=== PATIENT | male | born 1990 | race Caucasian/White ===

== ENCOUNTER 2019-03-07 20:13 | Emergency (ER) | payer OTHER ==
[~2019-03-07] VITALS: Ht 177.8 cm; Wt 156.5 kg
[2019-03-07 20:27] VITALS: BP 166/81
--- NOTE | 2019-03-07 22:08 | NUR ---
PT AMBULATED TO BED 10.
--- NOTE | 2019-03-07 22:48 | NUR ---
28 Y/O MALE C/O CP RADIATING TO THE LEFT ARM AND LEFT SHOULDER. , DIZZINESS, AND NAUSEA WITHOUT VOMITING X1 DAY. NO SOB/DYSPNEA. [address],ACUTE PAIN. SUDDEN ONSET. PATIENT STATED THAT HE HAD N/V/D YESTERDAY BUT NO COMPLAINTS FOR TODAY. SPO2 IS 95% ON ROOM AIR. HR IS 76BPM. ERMD MADE AWARE OF STATUS. SIDERAILSX1 AND PLACED ON MONITOR. HX: DENIES RX:NONE NKDA
--- NOTE | 2019-03-07 23:55 | NUR ---
ERMD EVALUATING PATIENT.
[2019-03-08] MEDS ORDERED: KETOROLAC 60 MG/2 ML VIAL IM ONE (00:15)
[2019-03-08 04:26] VITALS: BP 122/62
== END 2019-03-08 01:30 | disposition home or self-care (01) ==
LOC: MED 20:13
DX: R07.9 Chest pain, unspecified (principal); E66.01 Morbid (severe) obesity due to excess calories; Z68.42 Body mass index [BMI] 45.0-49.9, adult
CPT/HCPCS: 71045; 93005; 96372; 99283; J1885; Q0092

== ENCOUNTER 2023-09-23 04:57 | Observation (INO) | payer MEDICAID, OTHER ==
[~2023-09-23] VITALS: Ht 177.8 cm; Wt 158.8 kg
[2023-09-23 05:00] VITALS: BP 148/90; PULSE 94; RESP 18; TEMP 98; O2SAT 96
[2023-09-23] MEDS: MORPHINE SULFATE 4 MG/ML SYR IVP ONE ×2 (05:54→08:23)
[2023-09-23] MEDS: ONDANSETRON 4 MG/2 ML VIAL IVP ONE (05:55)
[2023-09-23 06:31] LABS: BASOPHILS % (AUTO) 0.3 % (0.0-2.0); EOSINOPHILS # (AUTO) 0.5 K/uL (0-0.4); LYMPHOCYTES % (AUTO) 25.7 % (20.5-51.1); MEAN CORPUSCULAR HEMOGLOBIN 29 pg (27-31); MEAN CORPUSCULAR HGB CONC 35 g/dL (33-37); MEAN CORPUSCULAR VOLUME 84.4 fL (80-94); MONOCYTES # (AUTO) 0.6 K/uL (0.8-1.0); MONOCYTES % (AUTO) 5.5 % (1.7-9.3); NEUTROPHILS # (AUTO) 7.4 K/uL (1.8-7.7); NEUTROPHILS % (AUTO) 64.5 % (42.2-75.2); PLATELET COUNT (AUTO) 249 K/uL (140-450); RED CELL DISTRIBUTION WIDTH 14.3 % (11.6-13.7); WHITE BLOOD COUNT (AUTO) 11.5 K/uL (4.8-10.8)
[2023-09-23 06:43] LABS: ANION GAP 13.6 (8-16); CARBON DIOXIDE 27.2 mmol/L (21-32); POTASSIUM 3.8 mmol/L (3.5-5.1)
[2023-09-23 06:50] LABS: ALBUMIN 3.7 g/dL (3.4-5.0); BILIRUBIN,DIRECT 0.1 mg/dL (0.0-0.3); TOTAL BILIRUBIN 0.4 mg/dL (0.0-1.0)
[2023-09-23 07:19] LABS: APPEARANCE,URINE CLEAR (CLEAR); BILIRUBIN,URINE NEGATIVE (NEGATIVE); BLOOD, URINE NEGATIVE (NEGATIVE); COLOR,URINE YELLOW (YELLOW); LEUKOCYTE ESTERASE ,URINE NEGATIVE (NEGATIVE); NITRITE, URINE NEGATIVE (NEGATIVE); PROTEIN,URINE NEGATIVE (NEGATIVE); UGLUCOSE NEGATIVE (NEGATIVE); UROBILINOGEN,URINE 0.2 EU/dL (0.2 - 1)
[2023-09-23] MEDS ORDERED: FAMO-92 PO (07:50)
[2023-09-23] MEDS: ASPIRIN 81 MG TAB.CHEW PO ONE (08:29)
[2023-09-23] MEDS: NITROGLYCERIN 2% 1 GM PKT TP ONE (08:31)
[2023-09-23] MEDS ORDERED: HYDROcodone/APAP 5/325 MG 1 TAB TAB PO PRN (09:40)
[2023-09-23] MEDS ORDERED: ONDANSETRON 4 MG/2 ML VIAL IVP PRN (09:40)
[2023-09-23] MEDS ORDERED: KCL 20 MEQ IN 100 mL PREMIX 200 ML IV PRN (09:40)
[2023-09-23] MEDS ORDERED: MAG SULF 2000 MG/WATER PREMIX 50 ML IV PRN (09:40)
[2023-09-23] MEDS ORDERED: ACETAMINOPHEN 325 MG TAB PO PRN (09:40)
[2023-09-23] MEDS ORDERED: POTASSIUM CHLORIDE 10 MEQ TABER PO PRN (09:40)
[2023-09-23] MEDS ORDERED: MAGNESIUM OXIDE 400 MG TAB PO PRN (09:40)
[2023-09-23 11:00] VITALS: PULSE 87; RESP 18; O2SAT 93
[2023-09-23] MEDS: NACL 0.9% 1,000 ML IV SCH (11:29)
[2023-09-23 12:00] VITALS: PULSE 80
[2023-09-23 15:58] VITALS: BP 146/89; PULSE 87; RESP 20; TEMP 96.9
[2023-09-24] MEDS ORDERED: ASPIRIN 81 MG TAB.CHEW PO SCH (09:00)
[2023-09-24] MEDS ORDERED: ATORVASTATIN 20 MG TAB PO SCH (09:00)
== END 2023-09-23 16:45 | disposition home or self-care (01) ==
LOC: MED 04:57 → MTU 09:42 → MED 09:42 → MTU 10:22
PROVIDERS: ADMIT Hospitalist; ATTEND Hospitalist
DX: R10.31 Right lower quadrant pain (principal); R10.11 Right upper quadrant pain; R79.89 Other specified abnormal findings of blood chemistry; E66.01 Morbid (severe) obesity due to excess calories; I21.4 Non-ST elevation (NSTEMI) myocardial infarction; Z68.43 Body mass index [BMI] 50.0-59.9, adult
CPT/HCPCS: 36415; 76705; 80048; 80076; 81003; 82150; 83690; 84484; 85025; 87040; 87081; 93005; 96361; 96374; 96375; 99291; G0378; J2270; J2405; Q0092